=== PATIENT | male | born 1960 | race Caucasian/White ===

== ENCOUNTER → 2016-12-23 | Outpatient (REF) | payer OTHER ==
[2016-12-23 11:45] LABS: ALBUMIN 4.3 GM/DL (3.2-5.2); ALBUMIN/GLOBULIN RATIO 1.59 (1.00-1.93); ALKALINE PHOSPHATASE 66 U/L (45-117); ALT/SGPT 65 U/L (12-78); ANION GAP 6 MEQ/L (8-16); AST/SGOT 24 U/L (15-37); BILIRUBIN,TOTAL 0.3 MG/DL (0.2-1.0); BLOOD UREA NITROGEN 23 MG/DL (7-18); CALCIUM LEVEL 9.3 MG/DL (8.5-10.1); CARBON DIOXIDE LEVEL 24 MEQ/L (21-32); CHLORIDE LEVEL 108 MEQ/L (98-107); CHOLESTEROL LEVEL 230 MG/DL (<200); CREATININE FOR GFR 0.96 MG/DL (0.70-1.30); GLOMERULAR FILTRATION RATE > 60.0 (>56); GLUCOSE, FASTING 134 MG/DL (70-105); POTASSIUM SERUM 4.6 MEQ/L (3.5-5.1); SODIUM LEVEL 138 MEQ/L (136-145); TRIGLYCERIDES LEVEL 280 MG/DL (<150); URIC ACID 6.5 MG/DL (3.5-7.2)
== END ==
LOC: M SFHCCLAY 06:59
PROVIDERS: ATTEND Family Medicine
DX: I10 Essential (primary) hypertension (principal); R73.09 Other abnormal glucose; E78.2 Mixed hyperlipidemia; Z12.5 Encounter for screening for malignant neoplasm of prostate; M1A.0610 Idiopathic chronic gout, right knee, without tophus (tophi)

== ENCOUNTER → 2017-06-16 | Outpatient (REF) | payer OTHER ==
[2017-06-16 12:04] LABS: ESTIMATED AVERAGE GLUCOSE 128 MG/DL (60-110); HEMOGLOBIN A1c 6.1 %
[2017-06-16 12:11] LABS: ALBUMIN 4.1 GM/DL (3.2-5.2); ALBUMIN/GLOBULIN RATIO 1.58 (1.00-1.93); ALKALINE PHOSPHATASE 78 U/L (45-117); ALT/SGPT 56 U/L (12-78); ANION GAP 7 MEQ/L (8-16); AST/SGOT 28 U/L (7-37); BILIRUBIN,TOTAL 0.4 MG/DL (0.2-1.0); BLOOD UREA NITROGEN 17 MG/DL (7-18); CALCIUM LEVEL 8.6 MG/DL (8.5-10.1); CARBON DIOXIDE LEVEL 27 MEQ/L (21-32); CHLORIDE LEVEL 106 MEQ/L (98-107); CHOLESTEROL LEVEL 173 MG/DL (<200); CHOLESTEROL RISK RATIO 5.406 (<5); CREATININE FOR GFR 0.93 MG/DL (0.70-1.30); GLOMERULAR FILTRATION RATE > 60.0 (>56); GLUCOSE, FASTING 127 MG/DL (70-105); HDL CHOLESTEROL 32 MG/DL (>40); LDL CHOLESTEROL 102.8 MG/DL (<100); NON-HDL-C 141 MG/DL; POTASSIUM SERUM 4.5 MEQ/L (3.5-5.1); SODIUM LEVEL 140 MEQ/L (136-145); TOTAL PROTEIN 6.7 GM/DL (6.4-8.2); TRIGLYCERIDES LEVEL 191 MG/DL (<150); URIC ACID 4.6 MG/DL (3.5-7.2)
== END ==
LOC: M SFHCCLAY 07:42
DX: I10 Essential (primary) hypertension (principal); R73.09 Other abnormal glucose; E78.2 Mixed hyperlipidemia; M1A.0610 Idiopathic chronic gout, right knee, without tophus (tophi)

== ENCOUNTER → 2017-10-25 | Outpatient (CLI) | payer OTHER | LOC: M CLY 09:33 | DX: M19.041 Primary osteoarthritis, right hand (principal) | CPT/HCPCS: 73130 ==

== ENCOUNTER → 2018-02-18 | Outpatient (REF) | payer OTHER ==
[2018-02-18 12:00] LABS: ALBUMIN/GLOBULIN RATIO 1.29 (1.00-1.93); ALKALINE PHOSPHATASE 94 U/L (45-117); ALT/SGPT 61 U/L (12-78); ANION GAP 10 MEQ/L (8-16); AST/SGOT 27 U/L (7-37); BILIRUBIN,TOTAL 0.5 MG/DL (0.2-1.0); BLOOD UREA NITROGEN 17 MG/DL (7-18); CALCIUM LEVEL 8.9 MG/DL (8.5-10.1); CARBON DIOXIDE LEVEL 25 MEQ/L (21-32); CHLORIDE LEVEL 107 MEQ/L (98-107); CHOLESTEROL LEVEL 205 MG/DL (<200); CHOLESTEROL RISK RATIO 6.029 (<5); GLOMERULAR FILTRATION RATE > 60.0 (>56); GLUCOSE, FASTING 122 MG/DL (70-100); HDL CHOLESTEROL 34 MG/DL (>40); LDL CHOLESTEROL 98.8 MG/DL (<100); NON-HDL-C 171 MG/DL; POTASSIUM SERUM 4.7 MEQ/L (3.5-5.1); SODIUM LEVEL 142 MEQ/L (136-145); TOTAL PROTEIN 7.1 GM/DL (6.4-8.2); TRIGLYCERIDES LEVEL 361 MG/DL (<150)
== END ==
LOC: M SFHCCLAY 06:59
DX: I10 Essential (primary) hypertension (principal); E78.2 Mixed hyperlipidemia

== ENCOUNTER → 2018-02-24 | Outpatient (REF) | payer OTHER ==
[2018-02-24 15:34] LABS: URIC ACID 7.2 MG/DL (3.5-7.2)
[2018-02-24 15:42] LABS: ESTIMATED AVERAGE GLUCOSE 123 MG/DL (60-110); HEMOGLOBIN A1c 5.9 %
== END ==
LOC: M SFHCCLAY 07:43
DX: R73.09 Other abnormal glucose (principal); M1A.00X0 Idiopathic chronic gout, unspecified site, without tophus (tophi)

== ENCOUNTER → 2018-07-13 | Outpatient (REF) | payer OTHER ==
[2018-07-13 12:20] LABS: BLOOD UREA NITROGEN 13 MG/DL (7-18); CARBON DIOXIDE LEVEL 28 MEQ/L (21-32); CHLORIDE LEVEL 103 MEQ/L (98-107); GLOMERULAR FILTRATION RATE > 60.0 (>56); GLUCOSE, FASTING 182 MG/DL (70-100); POTASSIUM SERUM 4.5 MEQ/L (3.5-5.1); SODIUM LEVEL 138 MEQ/L (136-145)
== END ==
LOC: M SFHCCLAY 08:03
PROVIDERS: ATTEND Family Medicine
DX: I10 Essential (primary) hypertension (principal)

== ENCOUNTER → 2018-11-28 | Outpatient (REF) | payer OTHER ==
[2018-11-28 11:22] LABS: BLOOD UREA NITROGEN 17 MG/DL (7-18); CARBON DIOXIDE LEVEL 28 MEQ/L (21-32); CHLORIDE LEVEL 107 MEQ/L (98-107); CREATININE FOR GFR 0.77 MG/DL (0.70-1.30); GLOMERULAR FILTRATION RATE > 60.0 (>56); GLUCOSE, FASTING 131 MG/DL (70-100); POTASSIUM SERUM 4.3 MEQ/L (3.5-5.1); SODIUM LEVEL 140 MEQ/L (136-145)
== END ==
LOC: M SFHCCLAY 08:28
PROVIDERS: ATTEND Family Medicine
DX: I10 Essential (primary) hypertension (principal)

== ENCOUNTER → 2019-01-02 | Outpatient (CLI) | payer OTHER ==
--- NOTE | 2019-01-09 07:54 | ECHO ---
DATE OF STUDY: 01/02/2019 REFERRING PHYSICIAN: Dr. Argelia Pugh INDICATION: Edema (localized). HEIGHT: 67 inches. WEIGHT: 206 pounds. 2-D MEASUREMENTS: Aortic root: 3.0 cm Left atrium: 4.2 cm Ventricular septum: 1.03 cm Posterior wall: 1.01 cm Left ventricle diastole: 4.6 cm Inferior vena cava: 1.6 cm (more than 50% respiratory variation) DOPPLER MEASUREMENTS: Aortic valve velocity: 121 cm/sec LVOT velocity: 94.6 cm/sec LVOT VTI: 17.2 cm Mitral E velocity: 47.1 cm/sec Mitral A velocity: 73.2 cm/sec Deceleration time (mitral): 356 ms Trace tricuspid regurgitation Pulmonary artery systolic pressure estimated to be 33 mmHg by pulmonary acceleration time method MITRAL ANNULAR TISSUE DOPPLER: E prime septal: 4.1 cm/sec E prime lateral: 5.3 cm/sec DESCRIPTION: The rhythm was sinus bradycardia. Image quality was moderately technically difficult. No pericardial effusion. This was a 2-D, M-mode, color flow Doppler and pulse wave Doppler examination and included mitral annular tissue Doppler. CONCLUSIONS: 1. Normal left ventricle internal dimensions and wall thickness. Normal regional LV wall motion and wall thickening. Normal LV systolic function. LVEF 60% by visual estimate. Grade 1 LV diastolic dysfunction. 2. Suggestive of slight elevation of pulmonary artery systolic pressure. Normal right ventricle size and systolic function. Normal right atrial size. 3. Suggestive of normal central venous pressure (5-10 mmHg) 4. Otherwise normal appearing echocardiogram Doppler findings.
== END ==
LOC: M CARPUL 10:02
PROVIDERS: ATTEND Family Medicine
DX: R22.43 Localized swelling, mass and lump, lower limb, bilateral (principal); I10 Essential (primary) hypertension

== ENCOUNTER → 2019-01-10 | Outpatient (REF) | payer OTHER ==
[2019-01-11 12:19] LABS: BLOOD UREA NITROGEN 12 MG/DL (7-18); CALCIUM LEVEL 9.8 MG/DL (8.5-10.1); CARBON DIOXIDE LEVEL 29 MEQ/L (21-32); CHLORIDE LEVEL 104 MEQ/L (98-107); GLOMERULAR FILTRATION RATE > 60.0 (>56); GLUCOSE, FASTING 98 MG/DL (70-100); POTASSIUM SERUM 3.9 MEQ/L (3.5-5.1); SODIUM LEVEL 140 MEQ/L (136-145)
== END ==
LOC: M SFHCCLAY 15:26
PROVIDERS: ATTEND Family Medicine
DX: I11.0 Hypertensive heart disease with heart failure (principal); I50.32 Chronic diastolic (congestive) heart failure

== ENCOUNTER → 2019-12-04 | Outpatient (REF) | payer OTHER ==
[2019-12-04 12:06] LABS: BLOOD UREA NITROGEN 13 MG/DL (7-18); CALCIUM LEVEL 9.4 MG/DL (8.8-10.2); CARBON DIOXIDE LEVEL 29 MEQ/L (21-32); CHLORIDE LEVEL 103 MEQ/L (98-107); CHOLESTEROL LEVEL 155 MG/DL (<200); CHOLESTEROL RISK RATIO 4.696 (<5); GLOMERULAR FILTRATION RATE > 60.0 (>49); GLUCOSE, FASTING 133 MG/DL (70-100); HDL CHOLESTEROL 33 MG/DL (>40); LDL CHOLESTEROL 47 MG/DL (<100); NON-HDL-C 122 MG/DL; POTASSIUM SERUM 3.9 MEQ/L (3.5-5.1); SODIUM LEVEL 139 MEQ/L (136-145); TRIGLYCERIDES LEVEL 376 MG/DL (<150)
[2019-12-04 15:13] LABS: HEMOGLOBIN A1c 6.6 %
== END ==
LOC: M SFHCCLAY 07:26
PROVIDERS: ATTEND Family Medicine
DX: R73.03 Prediabetes (principal); I11.9 Hypertensive heart disease without heart failure; E78.2 Mixed hyperlipidemia

== ENCOUNTER → 2020-02-26 | Outpatient (REF) | payer OTHER ==
[2020-02-26 13:27] LABS: BLOOD UREA NITROGEN 13 MG/DL (7-18); CALCIUM LEVEL 9.2 MG/DL (8.8-10.2); CARBON DIOXIDE LEVEL 28 MEQ/L (21-32); CHLORIDE LEVEL 104 MEQ/L (98-107); GLOMERULAR FILTRATION RATE > 60.0 (>49); GLUCOSE, FASTING 137 MG/DL (70-100); POTASSIUM SERUM 3.9 MEQ/L (3.5-5.1); SODIUM LEVEL 139 MEQ/L (136-145)
[2020-02-26 13:57] LABS: MALB URINE SIEMENS 22.1 MG/L; MAU/CREAT RATIO 13.3 MCG/MG (0.0-30.0)
[2020-02-26 14:34] LABS: HEMOGLOBIN A1c 6.2 %
== END ==
LOC: M SFHCCLAY 11:49
PROVIDERS: ATTEND Family Medicine
DX: I11.9 Hypertensive heart disease without heart failure (principal); E11.9 Type 2 diabetes mellitus without complications

== ENCOUNTER → 2020-04-15 | Outpatient (REF) | payer OTHER ==
[2020-04-16 12:07] LABS: BLOOD UREA NITROGEN 20 MG/DL (7-18); CARBON DIOXIDE LEVEL 31 MEQ/L (21-32); CHLORIDE LEVEL 101 MEQ/L (98-107); CREATININE FOR GFR 0.96 MG/DL (0.70-1.30); GLOMERULAR FILTRATION RATE > 60.0 (>49); GLUCOSE, FASTING 144 MG/DL (70-100); POTASSIUM SERUM 5.1 MEQ/L (3.5-5.1); SODIUM LEVEL 136 MEQ/L (136-145)
== END ==
LOC: M SFHCCLAY 15:44
PROVIDERS: ATTEND Family Medicine
DX: I11.9 Hypertensive heart disease without heart failure (principal)

== ENCOUNTER → 2020-06-17 | Outpatient (REF) | payer OTHER ==
[2020-06-17 12:11] LABS: BLOOD UREA NITROGEN 16 MG/DL (7-18); CALCIUM LEVEL 9.1 MG/DL (8.8-10.2); CARBON DIOXIDE LEVEL 31 MEQ/L (21-32); CHLORIDE LEVEL 103 MEQ/L (98-107); CREATININE FOR GFR 0.98 MG/DL (0.70-1.30); GLOMERULAR FILTRATION RATE > 60.0 (>49); GLUCOSE, FASTING 146 MG/DL (70-100); POTASSIUM SERUM 4.4 MEQ/L (3.5-5.1); SODIUM LEVEL 137 MEQ/L (136-145)
== END ==
LOC: M SFHCCLAY 07:23
PROVIDERS: ATTEND Family Medicine
DX: I11.0 Hypertensive heart disease with heart failure (principal); I50.32 Chronic diastolic (congestive) heart failure

== ENCOUNTER → 2020-12-12 | Outpatient (REF) | payer OTHER ==
[2020-12-12 16:55] LABS: BLOOD UREA NITROGEN 18 MG/DL (7-18); CALCIUM LEVEL 9.6 MG/DL (8.8-10.2); CARBON DIOXIDE LEVEL 26 MEQ/L (21-32); CHLORIDE LEVEL 101 MEQ/L (98-107); CREATININE FOR GFR 0.79 MG/DL (0.70-1.30); GLOMERULAR FILTRATION RATE > 60.0 (>49); GLUCOSE, FASTING 119 MG/DL (70-100); POTASSIUM SERUM 4.2 MEQ/L (3.5-5.1); SODIUM LEVEL 137 MEQ/L (136-145)
== END ==
LOC: M SFHCCLAY 09:56
PROVIDERS: ATTEND Family Medicine
DX: I11.0 Hypertensive heart disease with heart failure (principal); I50.9 Heart failure, unspecified

== ENCOUNTER → 2021-05-28 | Outpatient (CLI) | payer OTHER | LOC: M LABSMTC 12:51 | PROVIDERS: ATTEND Pediatrics | DX: Z20.822 Contact with and (suspected) exposure to COVID-19 (principal) | CPT/HCPCS: C9803; U0003 ==

== ENCOUNTER 2021-06-04 09:48 | Outpatient (CLI) | payer OTHER ==
[~2021-06-04] VITALS: Ht 170.2 cm; Wt 99.0 kg
[~2021-06-04 09:48] MED LIST: ALBUTEROL 90 MCG/ACT 8GM HFA INHALER INH PRN; ALBUTEROL SULFATE 2.5 MG/0.5 ML INH NEB SOLN INH PRN; EPINEPHrine INJ 1 MG/ML 1ML AMP IM PRN; NS 1,000 ML IV SCH; diphenhydrAMINE 50MG/ML VIAL (J1200) IV PRN; methylPREDNISolone 125MG 2ML VIAL IV PRN
[2021-06-04] MEDS ORDERED: CASIRIVIMAB/IMDEVIMAB 1,200 MG in NS 250 ML IV ONE (10:00)
[2021-06-04 10:17] VITALS: BP 137/74
[2021-06-04 10:47] VITALS: BP 139/75
[2021-06-04 11:17] VITALS: BP 115/66
[2021-06-04 12:17] VITALS: BP 118/60
== END 2021-06-04 12:17 | disposition home or self-care (01) ==
LOC: M OPCLI4PR 09:48
PROVIDERS: ATTEND Nurse Practitioner Family
DX: U07.1 COVID-19 (principal)

== ENCOUNTER → 2021-07-02 | Outpatient (REF) | payer OTHER ==
[2021-07-02 16:54] LABS: BLOOD UREA NITROGEN 19 MG/DL (7-18); CALCIUM LEVEL 9.5 MG/DL (8.8-10.2); CARBON DIOXIDE LEVEL 27 MEQ/L (21-32); CHLORIDE LEVEL 104 MEQ/L (98-107); CHOLESTEROL LEVEL 154 MG/DL (<200); CHOLESTEROL RISK RATIO 4.052 (<5); GLOMERULAR FILTRATION RATE > 60.0 (>49); GLUCOSE, FASTING 116 MG/DL (70-100); HDL CHOLESTEROL 38 MG/DL (>40); LDL CHOLESTEROL 59 MG/DL (<100); NON-HDL-C 116 MG/DL; POTASSIUM SERUM 4.5 MEQ/L (3.5-5.1); SODIUM LEVEL 138 MEQ/L (136-145); TRIGLYCERIDES LEVEL 283 MG/DL (<150); URIC ACID 4.9 MG/DL (3.5-7.2)
[2021-07-02 17:02] LABS: MALB URINE SIEMENS 25.8 MG/L; MAU/CREAT RATIO 16.5 MCG/MG (0.0-30.0)
[2021-07-02 17:14] LABS: HEMOGLOBIN A1c 5.9 %
== END ==
LOC: M SFHCCLAY 10:33
PROVIDERS: ATTEND Family Medicine
DX: Z00.00 Encounter for general adult medical examination without abnormal findings (principal); I11.0 Hypertensive heart disease with heart failure; E11.9 Type 2 diabetes mellitus without complications; E78.1 Pure hyperglyceridemia; M1A.00X0 Idiopathic chronic gout, unspecified site, without tophus (tophi)

== ENCOUNTER → 2022-01-05 | Outpatient (REF) | payer OTHER ==
[2022-01-05 12:12] LABS: BLOOD UREA NITROGEN 22 MG/DL (7-18); CALCIUM LEVEL 9.7 MG/DL (8.8-10.2); CARBON DIOXIDE LEVEL 25 MEQ/L (21-32); CHLORIDE LEVEL 107 MEQ/L (98-107); CREATININE FOR GFR 0.98 MG/DL (0.70-1.30); GLOMERULAR FILTRATION RATE > 60.0 (>49); GLUCOSE, FASTING 136 MG/DL (70-100); POTASSIUM SERUM 4.2 MEQ/L (3.5-5.1); SODIUM LEVEL 139 MEQ/L (136-145)
[2022-01-06 00:25] LABS: HEMOGLOBIN A1c 6.3 %
== END ==
LOC: M SFHCCLAY 07:52
PROVIDERS: ATTEND Family Medicine
DX: I11.0 Hypertensive heart disease with heart failure (principal); E11.9 Type 2 diabetes mellitus without complications

== ENCOUNTER → 2022-03-09 | Outpatient (REF) | payer OTHER | LOC: M SFHCCLAY 10:37 | PROVIDERS: ATTEND Nurse Practitioner Family | DX: R30.0 Dysuria (principal) ==

== ENCOUNTER → 2022-03-23 | Outpatient (REF) | payer OTHER ==
[2022-03-23 17:14] LABS: HEMATOCRIT 38.7 % (42.0-52.0); HEMOGLOBIN 13.6 g/dl (13.5-17.5); MEAN CORPUSCULAR HEMOGLOBIN 30.8 pg (27.0-33.0); MEAN CORPUSCULAR HGB CONC 35.1 g/dl (32.0-36.5); MEAN CORPUSCULAR VOLUME 87.6 fl (80.0-96.0); PLATELET COUNT, AUTOMATED 245 10^3/uL (150-450); RED BLOOD COUNT 4.42 10^6/uL (4.30-6.10); WHITE BLOOD COUNT 6.9 10^3/uL (4.0-10.0)
[2022-03-23 17:48] LABS: HEMOGLOBIN A1c 6.3 %
[2022-03-23 17:53] LABS: ALBUMIN 4.2 GM/DL (3.2-5.2); ALT/SGPT 48 U/L (12-78); BILIRUBIN,TOTAL 0.5 MG/DL (0.2-1.0); BLOOD UREA NITROGEN 13 MG/DL (7-18); CALCIUM LEVEL 9.6 MG/DL (8.8-10.2); CARBON DIOXIDE LEVEL 28 MEQ/L (21-32); CHLORIDE LEVEL 101 MEQ/L (98-107); CHOLESTEROL LEVEL 145 MG/DL (<200); CHOLESTEROL RISK RATIO 3.222 (<5); CREATININE FOR GFR 0.93 MG/DL (0.70-1.30); GLOMERULAR FILTRATION RATE > 60.0 (>49); GLUCOSE, FASTING 113 MG/DL (70-100); HDL CHOLESTEROL 45 MG/DL (>40); LDL CHOLESTEROL 46 MG/DL (<100); NON-HDL-C 100 MG/DL; POTASSIUM SERUM 4.8 MEQ/L (3.5-5.1); SODIUM LEVEL 134 MEQ/L (136-145); TRIGLYCERIDES LEVEL 272 MG/DL (<150); URIC ACID 5.3 MG/DL (3.5-7.2)
== END ==
LOC: M SFHCCLAY 11:46
PROVIDERS: ATTEND Nurse Practitioner Family
DX: I11.0 Hypertensive heart disease with heart failure (principal); E78.1 Pure hyperglyceridemia; M1A.00X0 Idiopathic chronic gout, unspecified site, without tophus (tophi); R73.03 Prediabetes; R30.0 Dysuria
CPT/HCPCS: 80053; 80061; 83036; 84550; 85027; G0103

== ENCOUNTER → 2022-07-13 | Outpatient (REF) | payer OTHER ==
[2022-07-13 18:10] LABS: APPEARANCE, URINE MANUAL CLEAR (CLEAR); COLOR, URINE MANUAL YELLOW (YELLOW)
[2022-07-13 18:11] LABS: BILIRUBIN, URINE MANUAL NEGATIVE (NEGATIVE); GLUCOSE, URINE (UA) MANUAL NEGATIVE (NEGATIVE); KETONE, URINE MANUAL NEGATIVE (NEGATIVE); NITRITE, URINE MANUAL NEGATIVE (NEGATIVE); PROTEIN, URINE MANUAL NEGATIVE (NEGATIVE); SPECIFIC GRAVITY,URINE MANUAL 1.015 (1.002-1.035); UROBILINOGEN, URINE MANUAL NORMAL (NORMAL)
[2022-07-13 18:12] LABS: BLOOD URINE MANUAL NEGATIVE (NEGATIVE); LEUKOCYTE ESTERASE, URINE MAN NEGATIVE (NEGATIVE)
== END ==
LOC: M SMT 17:00
PROVIDERS: ATTEND Physician Assistant
DX: N40.1 Benign prostatic hyperplasia with lower urinary tract symptoms (principal)

== ENCOUNTER → 2022-07-17 | Outpatient (CLI) | payer OTHER | LOC: M SOG 13:53 | PROVIDERS: ATTEND Orthopaedic Surgery Hand Surgery | DX: M19.041 Primary osteoarthritis, right hand (principal) ==

== ENCOUNTER → 2022-08-14 | Outpatient (REF) | payer OTHER ==
[~2022-08-14] MED LIST changes: -ALBUTEROL 90 MCG/ACT 8GM HFA INHALER INH PRN; -ALBUTEROL SULFATE 2.5 MG/0.5 ML INH NEB SOLN INH PRN; +ALLO300T2 PO; +ATOR80TA59 PO; +CHLO125TA PO; -EPINEPHrine INJ 1 MG/ML 1ML AMP IM PRN; +IBUP80TA PO; +LOSA25TA13 PO; -NS 1,000 ML IV SCH; +TAMS1CAP17 PO; -diphenhydrAMINE 50MG/ML VIAL (J1200) IV PRN; -methylPREDNISolone 125MG 2ML VIAL IV PRN
[2022-08-14 18:39] LABS: ALBUMIN 4.2 G/DL (3.2-5.2); ALKALINE PHOSPHATASE 101 U/L (46-116); ALT/SGPT 54 U/L (7.0-40); AST/SGOT 24 U/L (<34); BILIRUBIN,TOTAL 0.8 MG/DL (0.3-1.2); BLOOD UREA NITROGEN 16 MG/DL (9-23); CALCIUM LEVEL 9.3 MG/DL (8.3-10.6); CARBON DIOXIDE LEVEL 30 MMOL/L (20-31); CHLORIDE LEVEL 100 MMOL/L (98-107); CHOLESTEROL LEVEL 152 MG/DL (<200); CHOLESTEROL RISK RATIO 3.87 (<5); CREATININE FOR GFR 0.75 MG/DL (0.70-1.30); GLOMERULAR FILTRATION RATE > 60.0 (>49); GLUCOSE, FASTING 128 MG/DL (74-106); HDL CHOLESTEROL 39.2 MG/DL (>40); LDL CHOLESTEROL 51.2 MG/DL (<100); NON-HDL-C 113 MG/DL; POTASSIUM SERUM 4.1 MMOL/L (3.5-5.1); SODIUM LEVEL 138 MMOL/L (136-145); TOTAL PROTEIN 6.7 G/DL (5.7-8.2); TRIGLYCERIDES LEVEL 308 MG/DL (<150)
[2022-08-14 18:52] LABS: HEMOGLOBIN A1c 6.7 % (4.0-6.0)
== END ==
LOC: M SFHCCLAY 09:35
PROVIDERS: ATTEND Nurse Practitioner Family
DX: I11.0 Hypertensive heart disease with heart failure (principal); E78.1 Pure hyperglyceridemia; R73.03 Prediabetes

== ENCOUNTER → 2022-08-17 | Outpatient (CLI) | payer OTHER | LOC: M LABSMTC 12:12 | PROVIDERS: ATTEND Anesthesiology | DX: Z01.812 Encounter for preprocedural laboratory examination (principal) ==

== ENCOUNTER 2022-08-20 07:56 | Day surgery (SDC) | payer OTHER ==
[~2022-08-20] VITALS: Ht 170.2 cm; Wt 97.1 kg
[~2022-08-20 07:56] MED LIST changes: +CYCLOPENTOLATE 1% OPHTH SOLN 2ML BTL OS SCH; +FLURBIPROFEN 0.03% OPHTH SOLN 2.5 ML OS SCH; +LIDOCAINE 1% SDV 5ML VIAL As Ordered ONE; +LR 1,000 ML IV SCH; +MAXITROL OPHTH SUSP 5ML As Ordered ONE; +PHENYLEPHRINE 10% OPHTH SOL 5ML OS ONE; +PHENYLEPHRINE 2.5% OPHTH SOL 2ML OS SCH; +TETRACAINE 0.5% OPHTH SOLN 4ML OS SCH
[2022-08-20 11:06] VITALS: BP 153/74
[2022-08-20] MEDS ORDERED: MIDAZOLAM INJ 2MG/2ML VIAL As Ordered ONE (11:10)
[2022-08-20] MEDS ORDERED: fentaNYL 100 MCG/2 ML INJECTION As Ordered ONE (11:10)
== END 2022-08-20 11:27 | disposition home or self-care (01) ==
LOC: M SDC 07:56
PROVIDERS: ATTEND Ophthalmology
DX: H25.12 Age-related nuclear cataract, left eye (principal); I10 Essential (primary) hypertension; E78.00 Pure hypercholesterolemia, unspecified; M10.9 Gout, unspecified; N40.0 Benign prostatic hyperplasia without lower urinary tract symptoms; Z79.899 Other long term (current) drug therapy
CPT/HCPCS: 66984; J2250; J3010

== ENCOUNTER → 2022-09-10 | Outpatient (CLI) | payer OTHER ==
[~2022-09-10] MED LIST changes: -CYCLOPENTOLATE 1% OPHTH SOLN 2ML BTL OS SCH; -FLURBIPROFEN 0.03% OPHTH SOLN 2.5 ML OS SCH; -LIDOCAINE 1% SDV 5ML VIAL As Ordered ONE; -LR 1,000 ML IV SCH; -MAXITROL OPHTH SUSP 5ML As Ordered ONE; -PHENYLEPHRINE 10% OPHTH SOL 5ML OS ONE; -PHENYLEPHRINE 2.5% OPHTH SOL 2ML OS SCH; -TETRACAINE 0.5% OPHTH SOLN 4ML OS SCH
== END ==
LOC: M LABSMTC 07:58
PROVIDERS: ATTEND Anesthesiology
DX: Z01.818 Encounter for other preprocedural examination (principal)

== ENCOUNTER 2022-09-15 08:02 | Day surgery (SDC) | payer OTHER ==
[~2022-09-15] VITALS: Ht 170.2 cm; Wt 98.0 kg
[~2022-09-15 08:02] MED LIST changes: +ACETYLCHOLINE OPHTH SOLN 1% 2ML (MIOCHOL-E) As Ordered ONE; +CEFUROXIME 1MG/0.1ML INTRACAMERAL INJ As Ordered ONE; +CYCLOPENTOLATE 1% OPHTH SOLN 2ML BTL OD SCH; +LIDOCAINE 1% SDV 5ML VIAL As Ordered ONE; +OFLOXACIN 0.3 % (OCUFLOX) OPTH SOL 5ML OD SCH; +PHENYLEPHRINE 2.5% OPHTH SOL 2ML OD SCH; +PROPARACAINE 0.5% OPHTH SOL 15ML OD ONE; +TROPICAMIDE 1% OPHTH SOLN 15ML OD SCH
[2022-09-15] MEDS ORDERED: MIDAZOLAM INJ 2MG/2ML VIAL As Ordered ONE (09:33)
[2022-09-15] MEDS ORDERED: fentaNYL 100 MCG/2 ML INJECTION As Ordered ONE (09:34)
[2022-09-15] MEDS ORDERED: BSS IRR 500ML/OMIDRIA 4ML IRR BAG (OR ONLY) As Ordered ONE (09:51)
[2022-09-15 10:45] VITALS: BP 158/76
== END 2022-09-15 11:05 | disposition home or self-care (01) ==
LOC: M SDC 08:02
PROVIDERS: ATTEND Ophthalmology
DX: H25.11 Age-related nuclear cataract, right eye (principal); I10 Essential (primary) hypertension; E78.5 Hyperlipidemia, unspecified; M10.9 Gout, unspecified; Z79.899 Other long term (current) drug therapy
CPT/HCPCS: 66984; J0697; J1097; J2250; J3010

== ENCOUNTER → 2023-03-04 | Outpatient (REF) | payer OTHER ==
[~2023-03-04] MED LIST changes: -ACETYLCHOLINE OPHTH SOLN 1% 2ML (MIOCHOL-E) As Ordered ONE; -CEFUROXIME 1MG/0.1ML INTRACAMERAL INJ As Ordered ONE; -CYCLOPENTOLATE 1% OPHTH SOLN 2ML BTL OD SCH; -LIDOCAINE 1% SDV 5ML VIAL As Ordered ONE; -OFLOXACIN 0.3 % (OCUFLOX) OPTH SOL 5ML OD SCH; -PHENYLEPHRINE 2.5% OPHTH SOL 2ML OD SCH; -PROPARACAINE 0.5% OPHTH SOL 15ML OD ONE; -TROPICAMIDE 1% OPHTH SOLN 15ML OD SCH
[2023-03-04 13:18] LABS: ALBUMIN 4.1 G/DL (3.2-5.2); ALKALINE PHOSPHATASE 111 U/L (46-116); ALT/SGPT 52 U/L (7.0-40); AST/SGOT 27 U/L (<34); BILIRUBIN,TOTAL 0.5 MG/DL (0.3-1.2); BLOOD UREA NITROGEN 14 MG/DL (9-23); CALCIUM LEVEL 9.2 MG/DL (8.3-10.6); CARBON DIOXIDE LEVEL 31 MMOL/L (20-31); CHLORIDE LEVEL 104 MMOL/L (98-107); CHOLESTEROL LEVEL 151 MG/DL (<200); CHOLESTEROL RISK RATIO 4.25 (<5); GLOMERULAR FILTRATION RATE > 60.0 (>49); GLUCOSE, FASTING 143 MG/DL (74-106); HDL CHOLESTEROL 35.5 MG/DL (>40); NON-HDL-C 115.5 MG/DL; POTASSIUM SERUM 4.3 MMOL/L (3.5-5.1); SODIUM LEVEL 141 MMOL/L (136-145); TOTAL PROTEIN 6.3 G/DL (5.7-8.2); TRIGLYCERIDES LEVEL 408 MG/DL (<150)
[2023-03-04 13:48] LABS: HEMOGLOBIN A1c 5.8 % (4.0-6.0)
== END ==
LOC: M SFHCCLAY 06:56
PROVIDERS: ATTEND Nurse Practitioner Family
DX: E11.9 Type 2 diabetes mellitus without complications (principal)

== ENCOUNTER → 2023-03-05 | Outpatient (REF) | payer OTHER | LOC: M SFHCCLAY 09:14 | PROVIDERS: ATTEND Nurse Practitioner Family | DX: N40.1 Benign prostatic hyperplasia with lower urinary tract symptoms (principal) ==

== ENCOUNTER → 2023-06-08 | Outpatient (REF) | payer OTHER ==
[2023-06-08 17:51] LABS: RSV AMPLIFICATION NEGATIVE (NEGATIVE)
== END ==
LOC: M LAB REF 16:40
PROVIDERS: ATTEND Physician Assistant
DX: B34.9 Viral infection, unspecified (principal)

== ENCOUNTER → 2023-09-10 | Outpatient (REF) | payer OTHER ==
[2023-09-10 12:31] LABS: ALBUMIN 4.2 G/DL (3.2-5.2); ALKALINE PHOSPHATASE 105 U/L (46-116); ALT/SGPT 83 U/L (7.0-40); AST/SGOT 38 U/L (<34); BILIRUBIN,TOTAL 0.5 MG/DL (0.3-1.2); BLOOD UREA NITROGEN 18 MG/DL (9-23); CALCIUM LEVEL 9.4 MG/DL (8.3-10.6); CARBON DIOXIDE LEVEL 27 MMOL/L (20-31); CHLORIDE LEVEL 104 MMOL/L (98-107); CHOLESTEROL LEVEL 157 MG/DL (<200); CHOLESTEROL RISK RATIO 4.53 (<5); CREATININE FOR GFR 0.68 MG/DL (0.70-1.30); GLOMERULAR FILTRATION RATE > 60.0 (>49); GLUCOSE, FASTING 178 MG/DL (74-106); HDL CHOLESTEROL 34.6 MG/DL (>40); LDL CHOLESTEROL 62.6 MG/DL (<100); NON-HDL-C 122.4 MG/DL; POTASSIUM SERUM 4.1 MMOL/L (3.5-5.1); SODIUM LEVEL 138 MMOL/L (136-145); TOTAL PROTEIN 6.6 G/DL (5.7-8.2); TRIGLYCERIDES LEVEL 299 MG/DL (<150)
[2023-09-10 12:32] LABS: FREE T4 1.05 NG/DL (0.89-1.76)
[2023-09-10 12:33] LABS: THYROID STIMULATING HORMONE 2.651 uIU/ML (0.55-4.78)
[2023-09-10 12:37] LABS: URIC ACID 5.5 MG/DL (3.7-9.2)
== END ==
LOC: M SFHCCLAY 07:11
PROVIDERS: ATTEND Nurse Practitioner Family
DX: I11.0 Hypertensive heart disease with heart failure (principal); E78.1 Pure hyperglyceridemia; M1A.00X0 Idiopathic chronic gout, unspecified site, without tophus (tophi); M19.049 Primary osteoarthritis, unspecified hand; H81.11 Benign paroxysmal vertigo, right ear; N40.1 Benign prostatic hyperplasia with lower urinary tract symptoms; E11.9 Type 2 diabetes mellitus without complications; R82.90 Unspecified abnormal findings in urine

== ENCOUNTER → 2024-03-10 | Outpatient (REF) | payer OTHER ==
[2024-03-10 12:50] LABS: PSA SCREENING 1.09 NG/ML (< 4.00)
[2024-03-10 12:53] LABS: ALBUMIN 4.2 G/DL (3.2-5.2); ALKALINE PHOSPHATASE 96 U/L (46-116); ALT/SGPT 69 U/L (7.0-40); AST/SGOT 22 U/L (<34); BILIRUBIN,TOTAL 0.8 MG/DL (0.3-1.2); BLOOD UREA NITROGEN 22 MG/DL (9-23); CALCIUM LEVEL 10.5 MG/DL (8.3-10.6); CARBON DIOXIDE LEVEL 30 MMOL/L (20-31); CHLORIDE LEVEL 104 MMOL/L (98-107); CHOLESTEROL LEVEL 183 MG/DL (<200); CHOLESTEROL RISK RATIO 4.28 (<5); CREATININE FOR GFR 0.73 MG/DL (0.70-1.30); GLOMERULAR FILTRATION RATE > 60.0 (>49); GLUCOSE, FASTING 153 MG/DL (74-106); HDL CHOLESTEROL 42.7 MG/DL (>40); LDL CHOLESTEROL 74.1 MG/DL (<100); NON-HDL-C 140.3 MG/DL; POTASSIUM SERUM 4.3 MMOL/L (3.5-5.1); SODIUM LEVEL 137 MMOL/L (136-145); TOTAL PROTEIN 6.7 G/DL (5.7-8.2); TRIGLYCERIDES LEVEL 331 MG/DL (<150)
[2024-03-10 13:13] LABS: HEMOGLOBIN A1c 7.2 % (4.0-6.0)
== END ==
LOC: M SFHCCLAY 08:28
PROVIDERS: ATTEND Nurse Practitioner Family
DX: I11.0 Hypertensive heart disease with heart failure (principal); E78.1 Pure hyperglyceridemia; M1A.00X0 Idiopathic chronic gout, unspecified site, without tophus (tophi); M19.049 Primary osteoarthritis, unspecified hand; H81.11 Benign paroxysmal vertigo, right ear; N40.1 Benign prostatic hyperplasia with lower urinary tract symptoms; E11.9 Type 2 diabetes mellitus without complications; R82.90 Unspecified abnormal findings in urine; Z12.11 Encounter for screening for malignant neoplasm of colon
CPT/HCPCS: 80053; 80061; 83036; G0103

== ENCOUNTER 2024-06-22 10:03 | Day surgery (SDC) | payer OTHER ==
[~2024-06-22] VITALS: Ht 170.2 cm; Wt 92.1 kg
[~2024-06-22 10:03] MED LIST changes: +LIDOCAINE 2% 100MG/5ML SDV (FOR ANES.) As Ordered ONE; +propofoL 200 MG/20 ML VIAL As Ordered ONE
[2024-06-22 12:27] VITALS: BP 168/83; O2SAT 99
== END 2024-06-22 12:30 | disposition home or self-care (01) ==
LOC: M OPP 10:03
PROVIDERS: ATTEND Surgery
DX: Z12.11 Encounter for screening for malignant neoplasm of colon (principal); D12.0 Benign neoplasm of cecum; Z79.899 Other long term (current) drug therapy

== ENCOUNTER → 2024-09-01 | Outpatient (REF) | payer OTHER ==
[~2024-09-01] MED LIST changes: -LIDOCAINE 2% 100MG/5ML SDV (FOR ANES.) As Ordered ONE; -propofoL 200 MG/20 ML VIAL As Ordered ONE
[2024-09-01 13:05] LABS: ALBUMIN 4.3 G/DL (3.2-5.2); ALKALINE PHOSPHATASE 88 U/L (40-129); ALT/SGPT 50 U/L (7.0-40); AST/SGOT 23 U/L (<34); BILIRUBIN,TOTAL 0.7 MG/DL (0.3-1.2); BLOOD UREA NITROGEN 16 MG/DL (9-23); CALCIUM LEVEL 9.4 MG/DL (8.3-10.6); CARBON DIOXIDE LEVEL 27 MMOL/L (20-31); CHLORIDE LEVEL 104 MMOL/L (98-107); CHOLESTEROL LEVEL 157 MG/DL (<200); CHOLESTEROL RISK RATIO 3.83 (<5); CREATININE FOR GFR 0.73 MG/DL (0.70-1.30); GLOMERULAR FILTRATION RATE > 60.0 (>49); GLUCOSE, FASTING 140 MG/DL (74-106); HDL CHOLESTEROL 40.9 MG/DL (>40); LDL CHOLESTEROL 81.3 MG/DL (<100); NON-HDL-C 116.1 MG/DL; POTASSIUM SERUM 3.9 MMOL/L (3.5-5.1); SODIUM LEVEL 140 MMOL/L (136-145); TOTAL PROTEIN 6.9 G/DL (5.7-8.2); TRIGLYCERIDES LEVEL 174 MG/DL (<150)
[2024-09-01 13:26] LABS: HEMOGLOBIN A1c 6.6 % (4.0-6.0)
== END ==
LOC: M SFHCCLAY 09:02
PROVIDERS: ATTEND Nurse Practitioner Family
DX: I11.0 Hypertensive heart disease with heart failure (principal); E78.1 Pure hyperglyceridemia; M1A.00X0 Idiopathic chronic gout, unspecified site, without tophus (tophi); M19.049 Primary osteoarthritis, unspecified hand; H81.11 Benign paroxysmal vertigo, right ear; N40.1 Benign prostatic hyperplasia with lower urinary tract symptoms; E11.9 Type 2 diabetes mellitus without complications

== ENCOUNTER 2024-09-21 06:51 | Day surgery (SDC) | payer OTHER ==
[~2024-09-21] VITALS: Ht 175.3 cm; Wt 91.3 kg
[2024-09-21] MEDS ORDERED: propofoL 200 MG/20 ML VIAL As Ordered ONE (08:21)
[2024-09-21 08:24] VITALS: TEMP 97.8
[2024-09-21 08:40] VITALS: BP 145/87; O2SAT 97
== END 2024-09-21 08:51 | disposition home or self-care (01) ==
LOC: M OPP 06:51
PROVIDERS: ATTEND Surgery
DX: K57.30 Diverticulosis of large intestine without perforation or abscess without bleeding (principal); Z98.890 Other specified postprocedural states; Z86.0100 Personal history of colon polyps, unspecified; Z79.899 Other long term (current) drug therapy

== ENCOUNTER 2024-09-26 13:55 | Day surgery (SDC) | payer OTHER ==
[~2024-09-26] VITALS: Ht 170.2 cm; Wt 92.5 kg
[2024-09-26] MEDS ORDERED: LR 1,000 ML IV SCH ×2 (14:10→16:25)
[2024-09-26] MEDS ORDERED: ONDANSETRON 4MG 2ML VIAL As Ordered ONE (15:17)
[2024-09-26] MEDS ORDERED: fentaNYL 100 MCG/2 ML INJECTION As Ordered ONE (15:17)
[2024-09-26] MEDS ORDERED: ROCURONIUM BROMIDE 50MG/5ML VIAL As Ordered ONE (15:17)
[2024-09-26] MEDS ORDERED: LIDOCAINE 2% 100MG/5ML SDV (FOR ANES.) As Ordered ONE (15:17)
[2024-09-26] MEDS ORDERED: propofoL 200 MG/20 ML VIAL As Ordered ONE (15:17)
[2024-09-26] MEDS ORDERED: MIDAZOLAM INJ 2MG/2ML VIAL As Ordered ONE (15:17)
[2024-09-26] MEDS ORDERED: KETOROLAC 30 MG/ML 1ML VIAL As Ordered ONE (15:21)
[2024-09-26] MEDS ORDERED: SUGAMMADEX SODIUM 500 MG/5 ML VIAL (BRIDION) As Ordered ONE (15:22)
[2024-09-26] MEDS: ceFAZolin SOD 2 GM IV ONCE IV ONE (15:30)
[2024-09-26] MEDS ORDERED: ACETAMINOPHEN 1000MG/100ML IV BAG As Ordered ONE (15:46)
[2024-09-26] MEDS: BUPivacaine LIPOSOME/PF 266MG 20ML VIAL (13.3MG/ML)(EXPAREL) As Ordered ONE (16:11)
[2024-09-26] MEDS ORDERED: fentaNYL 100 MCG/2 ML INJECTION IV PRN (16:25)
[2024-09-26] MEDS ORDERED: ONDANSETRON 4MG 2ML VIAL IV PRN (16:25)
[2024-09-26] MEDS ORDERED: NS (Normal Saline) 0.9% 1,000 ML IV SCH (16:45)
[2024-09-26] MEDS ORDERED: PERCOCET 5MG/325MG TAB PO PRN ×2 (16:45)
[2024-09-26 17:38] VITALS: BP 148/71; TEMP 97.2; O2SAT 97
[2024-09-26] MEDS ORDERED: KETOROLAC 30 MG/ML 1ML VIAL IV SCH (22:00)
== END 2024-09-26 17:51 | disposition home or self-care (01) ==
LOC: M SDC 13:55
PROVIDERS: ATTEND Surgery
DX: K42.0 Umbilical hernia with obstruction, without gangrene (principal); Z79.899 Other long term (current) drug therapy
CPT/HCPCS: 49592; 88302; J0131; J0665; J0666; J0690; J1100; J1885; J2250; J2405; J3010

== ENCOUNTER → 2025-02-23 | Outpatient (REF) | payer OTHER ==
[2025-02-23 13:21] LABS: PSA SCREENING 1.02 NG/ML (< 4.00)
[2025-02-23 13:27] LABS: ALT/SGPT 67 U/L (7.0-40); AST/SGOT 31 U/L (<34); CALCIUM LEVEL 9.9 MG/DL (8.3-10.6); CARBON DIOXIDE LEVEL 28 MMOL/L (20-31); CHLORIDE LEVEL 101 MMOL/L (98-107); CHOLESTEROL LEVEL 179 MG/DL (<200); CHOLESTEROL RISK RATIO 4.90 (<5); CREATININE FOR GFR 0.80 MG/DL (0.70-1.30); GLOMERULAR FILTRATION RATE > 90.0 (>49); NON-HDL-C 142.5 MG/DL; POTASSIUM SERUM 3.9 MMOL/L (3.5-5.1); SODIUM LEVEL 141 MMOL/L (136-145); TRIGLYCERIDES LEVEL 427 MG/DL (<150)
[2025-02-23 13:55] LABS: ESTIMATED AVERAGE GLUCOSE 166.0 MG/DL (60-110)
== END ==
LOC: M SFHCCLAY 08:18
PROVIDERS: ATTEND Nurse Practitioner Family
DX: I11.0 Hypertensive heart disease with heart failure (principal); E78.1 Pure hyperglyceridemia; M1A.00X0 Idiopathic chronic gout, unspecified site, without tophus (tophi); M19.049 Primary osteoarthritis, unspecified hand; H81.11 Benign paroxysmal vertigo, right ear; N40.1 Benign prostatic hyperplasia with lower urinary tract symptoms; E11.9 Type 2 diabetes mellitus without complications; L23.7 Allergic contact dermatitis due to plants, except food
CPT/HCPCS: 80053; 80061; 83036; G0103

== ENCOUNTER → 2025-04-23 | Outpatient (CLI) | payer OTHER | LOC: M CLY 08:34 | PROVIDERS: ATTEND Physician Assistant | DX: M79.89 Other specified soft tissue disorders (principal); M25.431 Effusion, right wrist; M19.031 Primary osteoarthritis, right wrist; M19.041 Primary osteoarthritis, right hand ==

== ENCOUNTER → 2025-04-23 | Outpatient (REF) | payer OTHER ==
[2025-04-23 13:14] LABS: BASO # 0.1 10^3/uL (0.0-0.2); BASO % 1.2 % (0.0-1.0); EOS # 0.1 10^3/uL (0.0-0.5); EOS % 2.5 % (0.0-3.0); LYMPH # 1.5 10^3/uL (1.5-5.0); LYMPH % 26.6 % (24.0-44.0); MONO # 0.5 10^3/uL (0.0-0.8); MONO % 9.1 % (2.0-8.0); NEUTROPHILS # 3.4 10^3/uL (1.5-8.5); NEUTROPHILS % 60.1 % (36.0-66.0); PLATELET COUNT, AUTOMATED 265 10^3/uL (150-450)
[2025-04-23 13:19] LABS: ALT/SGPT 74 U/L (7.0-40); AST/SGOT 42 U/L (<34); C REACTIVE PROTEIN QUANTITATIV < 0.50 MG/DL (<1.0); CALCIUM LEVEL 10.1 MG/DL (8.3-10.6); CARBON DIOXIDE LEVEL 29 MMOL/L (20-31); CHLORIDE LEVEL 100 MMOL/L (98-107); CREATININE FOR GFR 0.94 MG/DL (0.70-1.30); GLOMERULAR FILTRATION RATE 89.4 (>49); POTASSIUM SERUM 4.2 MMOL/L (3.5-5.1); RHEUMATOID FACTOR QUANT < 3.5 IU/ML (<14); SODIUM LEVEL 137 MMOL/L (136-145)
[2025-04-26 20:20] LABS: LYME TOTAL ANTIBODY CIA <= 0.90 Index (<=0.90)
== END ==
LOC: M SFHCCLAY 08:17
PROVIDERS: ATTEND Physician Assistant
DX: M79.89 Other specified soft tissue disorders (principal)